=== PATIENT | female | born 1970 | race Caucasian/White ===

== ENCOUNTER 2017-04-05 20:32 | Emergency (ER) | payer OTHER ==
[2017-04-05 20:43] VITALS: O2SAT 97
[2017-04-05] MEDS ORDERED: NS 1,000 ML IV ONE (21:30)
[2017-04-05] MEDS ORDERED: ACETAMINOPHEN 325 MG TAB PO ONE (22:01)
--- NOTE | 2017-04-05 22:05 | EDPHY ---
[facility] P [facility] Time Seen by Provider: 04/05/17 21:12 HPI/ROS: CHIEF COMPLAINT: head injury HISTORY OF PRESENT ILLNESS: 46-year-old female presents emergency department after she slipped and fell on a wet floor striking the back of her head on the concrete. Patient denies loss of consciousness, she remembers the entire accident, she denies neck pain. Patient reports nausea, feeling like she is walking on air and a posterior headache. Patient denies history of concussion. She denies blurred vision, confusion. Family at bedside reports she is acting appropriate. REVIEW OF SYSTEMS: A comprehensive 10 point review of systems is otherwise negative aside from elements mentioned in the history of present illness. Source: Patient - Personal History LMP (Females 10-55): 8-14 Days Ago Current Tetanus/Diphtheria Vaccine: Yes - Medical/Surgical History Hx Asthma: No Hx Chronic Respiratory Disease: No Hx Diabetes: No Hx Cardiac Disease: No Hx Renal Disease: No Hx Cirrhosis: No Hx Alcoholism: No Hx HIV/AIDS: No Hx Splenectomy or Spleen Trauma: No Other PMH: PMHx: denies. PSHx: c sections - Social History Smoking Status: Never smoked - Physical Exam Exam: Physical Exam Gen: Alert and Oriented, NAD HEENT: PERRL, moist mucous membranes, no scalp, abrasion or laceration NECK: No C-spine tenderness CV: regular rate and regular rhythm PULM: CTAB, no wheezes BACK: No CVA tenderness NEURO: Neurologically grossly intact, normal cerebellar exam EXTREMITIES: normal appearing SKIN: no rash or break in skin on exposed skin PSYCH: answers questions appropriately. Constitutional: Initial Vital Signs Temperature (C) 37 C 04/05/17 20:39 Heart Rate 106 H 04/05/17 20:39 Respiratory Rate 14 04/05/17 20:39 Blood Pressure 140/98 H 04/05/17 20:39 O2 Sat (%) 97 04/05/17 20:39 O2 Delivery Mode Room Air Allergies/Adverse Reactions: No Known Allergies Allergy (Unverified 04/05/17 20:39) Home Medications: Medication Instructions Recorded Multi-Vitamin Daily 04/05/17 Medical Decision Making ED Course/Re-evaluation: This patient presents after a minor head injury with mild headache, no amnesia or LOC.] Neurologic exam normal. No indication for neuro imaging. CHI precautions given. Differential Diagnosis: The differential diagnosis for the patient's head injury included but was not limited to concussion, skull fracture, intra-parenchymal contusion, subarachnoid , subdural and epidural hematoma. Departure - Departure Disposition: Home, Routine, Self-Care Clinical Impression: Minor head injury without loss of consciousness Qualifiers: Encounter type: initial encounter Qualified Code(s): S09.90XA - Unspecified injury of head, initial encounter Condition: Good Instructions: Head Injury (ED) Additional Instructions: Take 650 mg of Tylenol every 8 hours as needed for headache. Follow up with the concussion specialist at 1st available appointment, call in the morning to schedule this. Return to the emergency department immediately for any forceful vomiting, confusion, difficulty walking, seizure-like activity, any new symptoms or concerns. Referrals: Ruthann Jamison MD [Medical Doctor] - As per Instructions (Concussion specialist) Stand Alone Forms: Work Comp Follow Up
[2017-04-05 23:07] VITALS: BP 139/90; PULSE 100; RESP 18; TEMP 98.6
== END 2017-04-05 23:11 | disposition home or self-care (01) ==
DX: S09.90XA Unspecified injury of head, initial encounter (principal); W01.0XXA Fall on same level from slipping, tripping and stumbling without subsequent striking against object, initial encounter